=== PATIENT | male | born 1990 | race Caucasian/White ===

== ENCOUNTER 2018-07-22 22:01 | Emergency (ER) | payer BC ==
[2018-07-22] MEDS ORDERED: Sodium Chloride 0.9% 1,000 ML IV ONE (22:21)
[2018-07-22 23:14] LABS: CHLORIDE,CL 102 mmol/L (98-107); SODIUM,NA 137 mmol/L (136-148)
[2018-07-22] MEDS ORDERED: Potassium Chloride 20 MEQ Tab.ER PO ONE (23:43)
[2018-07-22] MEDS ORDERED: Levofloxacin 500 MG Tab PO ONE ×2 (23:48)
--- NOTE | 2018-07-22 23:50 | EDM.PDOC ---
ED HPI GENERAL MEDICAL PROBLEM - General Chief Complaint: General Stated Complaint: FEVER Time Seen by Provider: 07/22/18 23:48 Source of Information: Reports: Patient - History of Present Illness INITIAL COMMENTS - FREE TEXT/NARRATIVE: HISTORY AND PHYSICAL: History of present illness: []Patient presents with sinus pain and tenderness for 1 week as well as loose stools intermittent fevers up to 8 or 9 loose stools daily over the last 24 hours no nausea vomiting or chills no chest pain shortness breath headache dizziness palpitation no urine symptoms no abdominal pain Review of systems: As per history of present illness and below otherwise all systems reviewed and negative. Past medical history: As per history of present illness and as reviewed below otherwise noncontributory. Surgical history: As per history of present illness and as reviewed below otherwise noncontributory. Social history: No reported history of drug or alcohol abuse. Family history: As per history of present illness and as reviewed below otherwise noncontributory. Physical exam: HEENT: Atraumatic, normocephalic, pupils reactive, negative for conjunctival pallor or scleral icterus, mucous membranes moist, throat clear, neck supple, nontender, trachea midline. sinus pain right greater than left Lungs: Clear to auscultation, breath sounds equal bilaterally, chest nontender. Heart: S1S2, regular, negative for clicks, rubs, or JVD. Abdomen: Soft, nondistended, nontender. Negative for masses or hepatosplenomegaly. Negative for costovertebral tenderness. Pelvis: Stable nontender. Genitourinary: Deferred. Rectal: Deferred. Extremities: Atraumatic, negative for cords or calf pain. Neurovascular unremarkable. Neuro: Awake, alert, oriented. Cranial nerves II through XII unremarkable. Cerebellum unremarkable. Motor and sensory unremarkable throughout. Exam nonfocal. Diagnostics: [CBC CMP UA Stool workup as below ] Therapeutics: [ renal saline KCl 20 mEq Levaquin ] Impression: [ gastroenteritis Sinusitis] Definitive disposition and diagnosis as appropriate pending reevaluation and review of above. Neck/eyes Pain Score (Numeric/FACES): 2 - Related Data Allergies Allergy/AdvReac Type Severity Reaction Status Date / Time No Known Allergies Allergy Verified 07/22/18 22:08 Home Meds: Home Meds . 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 Social & Family History - Family History Family Medical History: Noncontributory - Tobacco Use Smoking Status *Q: Current Every Day Smoker Years of Tobacco use: 15 Packs/Tins Daily: 1 - Caffeine Use Caffeine Use: Reports: Coffee, Energy Drinks, Soda - Recreational Drug Use Recreational Drug Use: No ED ROS GENERAL - Review of Systems Review Of Systems: See Below ED EXAM, GENERAL - Physical Exam Exam: See Below Course - Vital Signs Last Recorded V/S: Last Vital Signs Temp 98.5 F 07/22/18 23:24 Pulse 81 07/22/18 23:24 Resp 18 07/22/18 23:24 BP 109/55 L 07/22/18 23:24 Pulse Ox 94 L 07/22/18 23:24 - Orders/Labs/Meds Orders: Active Orders 24 hr Category Date Time Status CDIFF TOX A+B [OP] Stat Lab 07/22/18 23:20 Results CULTURE STOOL + CAMPY+SHIGATOX [RM] Stat Lab 07/22/18 23:20 Received OCCULT BLOOD DIAGNOSTIC [OP] Stat Lab 07/22/18 23:20 Results OVA & PARASITES BY IMMUNOASSAY [MREF] Stat Lab 07/22/18 23:20 Received Isolation [COMM] Stat Oth 07/22/18 22:53 Ordered Labs: Laboratory Tests 07/22/18 07/22/18 07/22/18 Range/Units 22:29 22:29 22:54 WBC 7.52 (4.0-11.0) K/uL RBC 5.36 (4.50-5.90) M/uL Hgb 14.9 (13.0-17.0) g/dL Hct 44.1 (38.0-50.0) % MCV 82.3 (80.0-98.0) fL MCH 27.8 (27.0-32.0) pg MCHC 33.8 (31.0-37.0) g/dL RDW Std Deviation 39.4 (28.0-62.0) fl RDW Coeff of Shawn 13 (11.0-15.0) % Plt Count 183 (150-400) K/uL MPV 9.50 (7.40-12.00) fL Neut % (Auto) 67.6 (48.0-80.0) % Lymph % (Auto) 16.0 (16.0-40.0) % [place] % (Auto) 15.2 H (0.0-15.0) % Eos % (Auto) 0.8 (0.0-7.0) % Baso % (Auto) 0.4 (0.0-1.5) % Neut # (Auto) 5.1 (1.4-5.7) K/uL Lymph # (Auto) 1.2 (0.6-2.4) K/uL [place] # (Auto) 1.1 H (0.0-0.8) K/uL Eos # (Auto) 0.1 (0.0-0.7) K/uL Baso # (Auto) 0.0 (0.0-0.1) K/uL Nucleated RBC % 0.0 /100WBC Nucleated RBCs # 0 K/uL Sodium 137 (136-148) mmol/L Potassium 3.3 L (3.5-5.1) mmol/L Chloride 102 (98-107) mmol/L Carbon Dioxide 25.3 (21.0-32.0) mmol/L BUN 26 H (7.0-18.0) mg/dL Creatinine 1.3 (0.8-1.3) mg/dL Est Cr Clr Drug Dosing 100.21 mL/min Estimated GFR (MDRD) > 60.0 ml/min Glucose 103 (74-106) mg/dL Calcium 8.4 L (8.5-10.1) mg/dL Total Bilirubin 0.9 (0.2-1.0) mg/dL AST 19 (15-37) IU/L ALT 35 (14-63) IU/L Alkaline Phosphatase 97 (46-116) U/L Total Protein 6.8 (6.4-8.2) g/dL Albumin 4.0 (3.4-5.0) g/dL Globulin 2.8 (2.6-4.0) g/dL Albumin/Globulin Ratio 1.4 (0.9-1.6) Urine Color YELLOW Urine Appearance CLEAR Urine pH 6.0 (5.0-8.0) Ur Specific [place] 1.020 (1.001-1.035) Urine Protein NEGATIVE (NEGATIVE) mg/dL Urine Glucose (UA) NEGATIVE (NEGATIVE) mg/dL Urine Ketones NEGATIVE (NEGATIVE) mg/dL Urine Occult Blood NEGATIVE (NEGATIVE) Urine Nitrite NEGATIVE (NEGATIVE) Urine Bilirubin NEGATIVE (NEGATIVE) Urine Urobilinogen 0.2 (<2.0) EU/dL Ur Leukocyte Esterase NEGATIVE (NEGATIVE) Meds: Medications Discontinued Medications Generic Name Dose Route Start Last Admin Trade Name Freq PRN Reason Stop Dose Admin Sodium Chloride 1,000 mls @ 999 mls/hr 07/22/18 22:21 07/22/18 22:42 Normal Saline IV 07/22/18 23:21 999 mls/hr STAT ONE Administration Potassium Chloride 20 meq 07/22/18 23:43 Klor-Con M20 PO 07/22/18 23:44 ONETIME ONE Departure - Departure Time of Disposition: 23:50 Disposition: Home, Self-Care 01 Condition: Good Clinical Impression: Sinusitis, Gastroenteritis - Discharge Information Referrals: PCP,None [Primary Care Provider] - Additional Instructions: Medication as prescribed Return if symptoms persist or worsen Stool cultures to follow All up with primary care in 2 weeks sooner as needed [facility] [address] [place] [address] The following information is given to patients seen in the emergency department who are being discharged to home. This information is to outline your options for follow-up care. We provide all patients seen in our emergency department with a follow-up referral. The need for follow-up, as well as the timing and circumstances, are variable depending upon the specifics of your emergency department visit. If you don't have a primary care physician on staff, we will provide you with a referral. We always advise you to contact your personal physician following an emergency department visit to inform them of the circumstance of the visit and for follow-up with them and/or the need for any referrals to a consulting specialist. The emergency department will also refer you to a specialist when appropriate. This referral assures that you have the opportunity for follow-up care with a specialist. All of these measure are taken in an effort to provide you with optimal care, which includes your follow-up. Under all circumstances we always encourage you to contact your private physician who remains a resource for coordinating your care. When calling for follow-up care, please make the office aware that this follow-up is from your recent emergency room visit. If for any reason you are refused follow-up, please contact the [facility] emergency department at and asked to speak to the emergency department charge nurse. - My Orders Last 24 Hours: My Active Orders 07/22/18 22:53 Isolation [COMM] Stat 07/22/18 23:20 CDIFF TOX A+B [OP] Stat CULTURE STOOL + CAMPY+SHIGATOX [RM] Stat OCCULT BLOOD DIAGNOSTIC [OP] Stat OVA & PARASITES BY IMMUNOASSAY [MREF] Stat - Assessment/Plan Last 24 Hours: My Active Orders 07/22/18 22:53 Isolation [COMM] Stat 07/22/18 23:20 CDIFF TOX A+B [OP] Stat CULTURE STOOL + CAMPY+SHIGATOX [RM] Stat OCCULT BLOOD DIAGNOSTIC [OP] Stat OVA & PARASITES BY IMMUNOASSAY [MREF] Stat
[2018-07-22 23:57] VITALS: BP 108/60
== END 2018-07-23 00:03 | disposition home or self-care (01) ==
LOC: MW.ED 22:01
DX: K52.9 Noninfective gastroenteritis and colitis, unspecified (principal); J32.9 Chronic sinusitis, unspecified
CPT/HCPCS: 36415; 80053; 81003; 82272; 85025; 87046; 87324; 87328; 87329; 87899; 96360; 99283; A9270; J7040